=== PATIENT | male | born 1930 | race Caucasian/White ===

== ENCOUNTER 2019-11-26 13:00 | Emergency (ER) | payer MEDICARE ==
--- NOTE | 2019-11-26 13:47 | RAD ---
AP PELVIS 1 VIEW: HISTORY: Right hip pain after hearing something pop. FINDINGS: There are some arthrosis and degenerative changes of the hip joints and both SI joints. No evidence for acute pelvic fracture. IMPRESSION: Degenerative and osteoarthrosis changes without acute fracture or dislocation. POS: [facility]
--- NOTE | 2019-11-26 13:48 | RAD ---
RIGHT HIP 2 VIEWS: HISTORY: Pain. COMPARISON: 10/15/2014. FINDINGS/IMPRESSION: Mild osteoarthrosis and degenerative change without fracture, dislocation, or other acute process. S table from prior study. POS: [facility]
== END 2019-11-26 14:50 | disposition home or self-care (01) ==
LOC: ERS 13:00
DX: M16.11 Unilateral primary osteoarthritis, right hip (principal); Z87.891 Personal history of nicotine dependence; E11.9 Type 2 diabetes mellitus without complications; I10 Essential (primary) hypertension; Z79.899 Other long term (current) drug therapy
CPT/HCPCS: 72170